=== PATIENT | male | born 1945 | race Caucasian/White ===

== ENCOUNTER 2022-10-23 17:35 | Inpatient (IN) | payer OTHER ==
[~2022-10-23] VITALS: Ht 188 cm; Wt 93.9 kg
[2022-10-23 17:47] VITALS: BP_SYST 166
--- NOTE | 2022-10-23 17:55 | NUR ---
Patient to ER bed H1 to gown for evaluation. Side rails up. Report given to Joshua Boss .
[2022-10-23] MEDS ORDERED: NACL 0.9% 1,000 ML IV ONE (18:00)
--- NOTE | 2022-10-23 18:20 | NUR ---
Dr Menendez evaluating patient in the formerly [facility]
[2022-10-23 18:36] LABS: BASOPHILS # (AUTO) 0.1 K/uL (0.0-0.2); EOSINOPHILS # (AUTO) 0.3 K/uL (0.0-0.4); EOSINOPHILS % (AUTO) 3.7 % (0.0-4.0); HEMATOCRIT 39.3 % (36-54); HEMOGLOBIN 14.1 g/dL (14.0-18.0); LYMPHOCYTES % (AUTO) 14.9 % (20.5-51.5); MEAN CORPUSCULAR HEMOGLOBIN 33 pg (27-31); MEAN CORPUSCULAR HGB CONC 36 % (32-36); MEAN CORPUSCULAR VOLUME 93 fL (79.0-98.0); MONOCYTES # (AUTO) 0.5 K/uL (0.0-1.0); MONOCYTES % (AUTO) 7.9 % (1.7-9.3); NEUTROPHILS % (AUTO) 72.5 % (40.0-70.0); PLATELET COUNT (AUTO) 230 K/uL (130-430); RED BLOOD CELL COUNT(AUTO) 4.25 MIL/uL (4.2-6.2); RED CELL DISTRIBUTION WIDTH 14.8 % (9.0-15.0); WHITE BLOOD COUNT (AUTO) 6.9 K/uL (4.8-10.8)
[2022-10-23 18:42] LABS: ANION GAP 9 (5-15); CALCIUM 9.5 mg/dL (8.4-11.0); CHLORIDE 103 mmol/L (98-107); CREATININE 1.21 mg/dL (0.55-1.30); GLUCOSE 131 mg/dL (70-99); UREA NITROGEN, BLOOD 25 mg/dL (8-21)
[2022-10-23 18:49] LABS: ALANINE AMINOTRANSFERASE 30 U/L (12-78); ALBUMIN 3.9 g/dL (3.4-4.8); ASPARTATE AMINOTRANSFERASE 30 U/L (10-37); TOTAL BILIRUBIN 0.9 mg/dL (0.0-1.0)
[2022-10-23] MEDS ORDERED: iohexoL 350 mgI/mL, 100 ML INFUS..BTL IV ONE (18:49)
[2022-10-23] MEDS ORDERED: *HEPARIN PER PHARMACY XX ONE (19:30)
--- NOTE | 2022-10-23 19:32 | NUR ---
Spoke with pharmacy in regards to heperin dosage. They will create order per pharmacist.
--- NOTE | 2022-10-23 19:37 | NUR ---
COVID AND MRSA SAMPLE COLLECTED AND SENT TO LAB
[2022-10-23 19:52] LABS: PROTHROMBIN TIME 9.8 SECS (9.5-12.5)
[2022-10-23] MEDS ORDERED: HEPARIN SODIUM,PORCINE 3000 UNITS/0.6 ML BOLUS IVP PRN (20:00)
[2022-10-23] MEDS ORDERED: HEPARIN SODIUM,PORCINE 2000 UNITS/0.4 ML BOLUS IVP PRN (20:00)
[2022-10-23] MEDS ORDERED: HEPARIN SODIUM,PORCINE 5,000 UNITS/ML VIAL IVP ONE (20:00)
[2022-10-23] MEDS ORDERED: LEVO125T8 PO (20:38)
--- NOTE | 2022-10-23 20:40 | NUR ---
Admit bed requested Patient will be admitted to care of . Admitted to TELE unit. Diagnosis PE Inpatient (Yes or No) YES Observation (Yes or No) NO Orientation concerns or request close to nursing station (Yes or No) NO Covid Status NEGATIVE On vent or bipap NO Isolation requirements NO Needs a sitter NO From Home (Yes or if No enter name of facility) YES Requires Dialysis (Yes or No) NO Med Rec Completed (Yes of No) YES
[2022-10-23] MEDS: HEPARIN 25,000 UNITS in 250 ML PREMIX IV PRN (20:55)
--- NOTE | 2022-10-23 23:00 | NUR ---
REPORT GIVEN TO CHAY PEREZ RN. PT A/OX4, VSS, NO SINS OF ACUTE DITRESS. PT TRANSPORTED BY [facility] WITH RN AND TECH ON MONITOR TO REQUESTED BED WITHOUT DIFFICULTY. AMBULATED WITHOUT ASSISTANCE.
[2022-10-24] MEDS: HEPARIN 25,000 UNITS in 250 ML PREMIX IV PRN (03:21)
--- NOTE | 2022-10-24 03:24 | NUR ---
ptt was 90.4. changed heparin rate from 15ML/hr to 14ML/hr per pharmacy protocol. next ptt lab draw at 0922. second rn Vik assisted with rate change.
[2022-10-24 03:45] VITALS: BP_SYST 144
[2022-10-24 04:00] VITALS: BP_SYST 142
--- NOTE | 2022-10-24 05:05 | NUR ---
CONSULTATION PAGED/CALLED Reason for Consultation: PE Person Who was Notified: SARAH Consulting Physician: RICARDO Waste Water Plant Operator Specialty: Ordering Physician: SELAM
--- NOTE | 2022-10-24 05:13 | NUR ---
CONSULTATION PAGED/CALLED Reason for Consultation: PE Person Who was Notified: RONN Consulting Physician: JENA Residential Mortgage Underwriter Specialty: Ordering Physician: SELAM
--- NOTE | 2022-10-24 05:15 | NUR ---
CONSULTATION PAGED/CALLED Reason for Consultation: PE Person Who was Notified: VY Consulting Physician: MONET Special Loan Officer Specialty: Ordering Physician:SELAM
--- NOTE | 2022-10-24 07:30 | NUR ---
OPENING NOTE REPORT WAS ENDORSED BY NIGHT NURSE. PATIENT IS AWAKE AND ALERT EDUCATED SET O TYPE OPERATOR LIGHT FOR ASSISTANCE. CALL LIGHT IS WITH HIM. PATIENT PROVIDED WITH FRESH WATER AND BREAKFAST TRY. NO OTHER NEEDS AT THIS TIME.
[2022-10-24] MEDS ORDERED: LEVOTHYROXINE SODIUM 0.125 MG TABLET PO ONE (08:00)
[2022-10-24] MEDS ORDERED: *LOVENOX 1MG/KG Q12H/PHARMACY XX ONE (08:00)
--- NOTE | 2022-10-24 08:21 | NUR ---
STOPPED HEPARIN ORDERED. PATIENT IS AWARE. EATING BREAKFAST NO COMPLAINTS AT THIS TIME. CALL LIGHT IS WITH HIM EDUCATED TO USE FOR ASSISTANCE. NO OTHER NEEDS AT THIS TIME.
[2022-10-24] MEDS ORDERED: ENOXAPARIN SODIUM 100 MG/ML SYRINGE SUBCUT SCH (09:00)
--- NOTE | 2022-10-24 10:06 | NUR ---
MEDICATION PATIENTS SCHEDULED MEDICATION GIVEN PER ORDER. EMERGENCY COMMUNICATIONS OFFICER AT BESIDE. PATIENT HAS SPOUSE ALSO AT BEDSIDE. PATIENT EDUCATED TO USES CALL LIGHT FOR ASSISTANCE. CALL LIGHT IS WITH HIM. NO OTHER NEEDS AT THIS TIME.
[2022-10-24 11:48] VITALS: BP_SYST 149
--- NOTE | 2022-10-24 12:15 | NUR ---
rn rounding patient is awake and alert no complaints at this time. call light is with him. educated to use for assistance.
--- NOTE | 2022-10-24 15:29 | NUR ---
rn rounding Patient is awake and alert laying in bed. no complaints at this time. call light is with him educated to use for assistance.
[2022-10-24 19:50] VITALS: BP_SYST 140
--- NOTE | 2022-10-24 20:00 | NUR ---
Opening note- pt awake and oriented. Denied any distress. Will give oral Eliquis for dvt and pe. Pt understood plan of care.
[2022-10-24] MEDS: APIXABAN 2.5 MG TABLET PO SCH (20:23)
[2022-10-25 00:24] VITALS: BP_SYST 148
[2022-10-25] MEDS ORDERED: APIX2.5T PO (03:54)
[2022-10-25 06:49] LABS: BASOPHILS # (AUTO) 0.1 K/uL (0.0-0.2); BASOPHILS % (AUTO) 1.3 % (0.0-2.0); EOSINOPHILS # (AUTO) 0.3 K/uL (0.0-0.4); EOSINOPHILS % (AUTO) 5.4 % (0.0-4.0); HEMATOCRIT 37.5 % (36-54); HEMOGLOBIN 13.1 g/dL (14.0-18.0); LYMPHOCYTES # (AUTO) 1.2 K/uL (1.0-5.5); LYMPHOCYTES % (AUTO) 22.8 % (20.5-51.5); MEAN CORPUSCULAR HEMOGLOBIN 33 pg (27-31); MEAN CORPUSCULAR HGB CONC 35 % (32-36); MEAN CORPUSCULAR VOLUME 94 fL (79.0-98.0); MONOCYTES # (AUTO) 0.5 K/uL (0.0-1.0); MONOCYTES % (AUTO) 9.9 % (1.7-9.3); NEUTROPHILS # (AUTO) 3.2 K/uL (1.8-7.7); NEUTROPHILS % (AUTO) 60.6 % (40.0-70.0); PLATELET COUNT (AUTO) 247 K/uL (130-430); RED BLOOD CELL COUNT(AUTO) 4.01 MIL/uL (4.2-6.2); RED CELL DISTRIBUTION WIDTH 14.6 % (9.0-15.0); WHITE BLOOD COUNT (AUTO) 5.3 K/uL (4.8-10.8)
[2022-10-25 06:57] LABS: ANION GAP 8 (5-15); CALCIUM 9.1 mg/dL (8.4-11.0); CHLORIDE 108 mmol/L (98-107); CREATININE 1.07 mg/dL (0.55-1.30); GLUCOSE 91 mg/dL (70-99); UREA NITROGEN, BLOOD 16 mg/dL (8-21)
[2022-10-25] MEDS ORDERED: LEVOTHYROXINE SODIUM 0.125 MG TABLET PO SCH (07:00)
[2022-10-25 11:44] VITALS: BP_SYST 127
[2022-10-25] MEDS: APIXABAN 2.5 MG TABLET PO SCH (11:59)
[2022-10-25 12:01] VITALS: BP_SYST 144
--- NOTE | 2022-10-25 17:17 | NUR ---
Patient discharged with his driving at 12:30 pm. Patient given discharge instructions and all questions answered. Patient escorted to lobby by walking. No sign or symptoms of discomfort on distress upon discharge.
== END 2022-10-25 12:22 | disposition home or self-care (01) | DRG 299 ==
LOC: SED 17:35 → STU 20:09
PROVIDERS: ADMIT Internal Medicine; ATTEND Internal Medicine
DX: I82.432 Acute embolism and thrombosis of left popliteal vein (principal); I26.94 Multiple subsegmental thrombotic pulmonary emboli without acute cor pulmonale; E03.9 Hypothyroidism, unspecified; Z20.822 Contact with and (suspected) exposure to COVID-19; Z87.891 Personal history of nicotine dependence; Z79.01 Long term (current) use of anticoagulants; Z90.49 Acquired absence of other specified parts of digestive tract
CPT/HCPCS: 36415; 71275; 76376; 76770; 80048; 80053; 83880; 84484; 85025; 85610-TC; 85730-TC; 87081; 93005; 93306; 96361; 96374; 99285; G0378; J1644; J1650; Q9967